=== PATIENT | male | born 1935 | race Caucasian/White ===

== ENCOUNTER 2018-10-18 17:05 | Inpatient (IN) | payer OTHER ==
--- NOTE | 2018-10-18 17:20 | PDOC ---
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 Pain is bilateral, non-qualifiable and radiates down his L arm. No associated palpitations, lightheadedness, shortness of breath. States he had similar pain when he had a cold previously however notes it was non-radiating. Patient also he was playing tennis earlier today when he felt dizzy for a few minutes, resumed playing after his symptoms resolved. Took 81 ASA @ home. Currently on Pradaxa. Follows with cardiology @ [facility]. Last stress test was 3 years previous and was normal. 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 Denies lower extremity edema/pain, recent travel. The patient denies abdominal pain, nausea/vomiting, diarrhea/constipation, dysuria/hematuria, fevers/chills. Allergy: Penicillin PMD: Dr. Magana <Shruthi Rivas - Last Filed: 10/18/18 18:54> <Fátima Catalan - Last Filed: 10/19/18 07:28> - General Chief Complaint: Chest Pain Stated Complaint: chest pain Time Seen by Provider: 10/18/18 17:14 Past History <Shruthi Rivas - Last Filed: 10/18/18 18:54> <Fátima Catalan - Last Filed: 10/19/18 07:28> - Past Medical History Allergies/Adverse Reactions: Allergies Allergy/AdvReac Type Severity Reaction Status Date / Time Penicillins Allergy Unknown Verified 10/18/18 17:50 Home Medications: Ambulatory Orders Dabigatran Etexilate Mesylate [Pradaxa -] 150 mg PO BID 10/18/18 Diclofenac Sodium 50 mg PO DAILY 10/18/18 Divalproex [Depakote -] 0 mg PO PRN PRN 10/18/18 Esomeprazole Magnesium [Nexium 24Hr] 40 mg PO DAILY 10/18/18 Ezetimibe 10 mg PO DAILY 10/18/18 Finasteride [Proscar] 5 mg PO HS 10/18/18 Folic Acid 3 mg PO HS 10/18/18 Tamsulosin HCl [Flomax] 0.4 mg PO BID 10/18/18 Valsartan [Diovan] 80 mg PO DAILY 10/18/18 Review of Systems - Review of Systems Constitutional: No: Chills, Fever HEENTM: No: Recent change in vision Respiratory: No: Shortness of Breath, Wheezing Cardiac (ROS): Yes: Chest Pain. No: Palpitations, Syncope ABD/GI: No: Constipated, Diarrhea, Nausea, Vomiting <Shruthi Rivas - Last Filed: 10/18/18 18:54> *Physical Exam - Physical Exam General Appearance: Yes: Nourished, Appropriately Dressed HEENT: positive: Normal Voice, Hearing Grossly Normal Neck: positive: Trachea midline, Supple Respiratory/Chest: positive: Lungs Clear, Normal Breath Sounds. negative: Wheezing Cardiovascular: positive: S1, S2. negative: Edema, JVD, Murmur Vascular Pulses: Dorsalis-Pedis (R): 2+, Doralis-Pedis (L): 2+ <Shruthi Rivas - Last Filed: 10/18/18 18:54> - Vital Signs Last Vital Signs Temp Pulse Resp BP Pulse Ox 97.7 F 55 L 16 107/64 96 10/18/18 17:12 10/18/18 18:10 10/18/18 18:10 10/18/18 18:10 10/18/18 18:10 <Fátima Catalan - Last Filed: 10/19/18 07:28> Heart Score/ECG Review - ECG Impressions Comment:: 10/18/18 18:35 NSR HR 61, RBB, TWI in leads III, aVF and precordials, no previous EKG in EMR <Shruthi Rivas - Last Filed: 10/18/18 18:54> ED Treatment Course - LABORATORY CBC & Chemistry Diagram: 10/18/18 17:35 10/18/18 17:35 <Shruthi Rivas - Last Filed: 10/18/18 18:54> - LABORATORY CBC & Chemistry Diagram: 10/18/18 17:35 10/19/18 05:30 - ADDITIONAL ORDERS Additional order review: Laboratory Results 10/18/18 10/18/18 10/18/18 17:35 17:35 17:35 PT with INR INR PTT (Actin FS) Sodium 134 L Potassium 4.0 Chloride 102 Carbon Dioxide 24 Anion Gap 8 BUN 16 Creatinine 1.3 Creat Clearance w eGFR 53.12 Random Glucose 109 H Calcium 8.9 Total Bilirubin 1.3 H AST 27 ALT 20 Alkaline Phosphatase 43 L Creatine Kinase 293 Troponin I 0.10 H Total Protein 6.6 Albumin 3.6 10/18/18 17:35 PT with INR 13.0 INR 1.16 PTT (Actin FS) 33.1 Sodium Potassium Chloride Carbon Dioxide Anion Gap BUN Creatinine Creat Clearance w eGFR Random Glucose Calcium Total Bilirubin AST ALT Alkaline Phosphatase Creatine Kinase Troponin I Total Protein Albumin 10/18/18 17:35 RBC 3.91 L MCV 89.9 MCHC 34.1 RDW 13.3 MPV 8.8 Neutrophils % 78.7 Lymphocytes % 13.2 Monocytes % 6.7 Eosinophils % 0.9 Basophils % 0.5 - Medications Given in the ED: ED Medications Discontinued Medications Generic Name Dose Route Start Last Admin Trade Name Freq PRN Reason Stop Dose Admin Aspirin 162 mg 10/18/18 17:35 10/18/18 17:50 Asa - PO 10/18/18 17:36 162 mg ONCE ONE Administration <Fátima Catalan - Last Filed: 10/19/18 07:28> Medical Decision Making - Medical Decision Making 10/18/18 17:27 82 year old male with chest pain. VS unremarkable. Frontal diagnosis: r/o ACS, NSTEMI, Arrythmia, Angina, Coronary Vasospasm, PUD, GERD, Gastritis, MSK, Costochondritis, Electrolyte derangement. Less likely Aortic dissection, PE given clinical presentation and story. Will obtain basic labs, Troponin, EKG, CXR. Reassess. 10/18/18 18:11 EKG shows HR 61, RBB, TWI in III, AVF, and precordial leads. No previous EKG in EMR 10/18/18 18:17 Case d/w Dr. Magana; agrees with telemetry admission. Will page nursing hotel or motel cleaning supervisor for transfer to telemetry bed @ [facility] Patient and patient's @ bedside counseled on plan of care, amenable to admission. 10/18/18 18:19 Troponin 0.10 - ? ischemic demand s/p ASA (81 mg @ home, 81 mg here) Heart Score 4 10/18/18 18:20 CXR shows no cardiomegaly, clear costophrenic angles, mild L sided atelectasis 10/18/18 18:[address] Corraels; awaiting callback, ? Heparin drip 10/18/18 18:33 Clinical Impression: NSTEMI 10/18/18 18:38 Case d/w Dr. Uribe (cardiology) - agrees w/Heparin drip and Troponin trend Patient reassessed @ bedside VSS Case signed out to Dr. Chen (Attending) for further management. <Shruthi Rivas - Last Filed: 10/18/18 18:54> - Medical Decision Making please see attending attestation - heart score is in high risk category, 6 for suspicion and comorbidities/age - not ischemic demand. This is NSTEMI, uptrending trops and will likely need cardiac cath. - full dose ASA given - heparin gtt initiated. - cards cs, admitted to [facility] under Dr Magana 10/19/18 07:27 <Fátima Catalan - Last Filed: 10/19/18 07:28> *DC/Admit/Observation/Transfer <Shruthi Rivas - Last Filed: 10/18/18 18:54> - Discharge Dispostion Decision to Admit order: Yes Decision to Admit order Date/Time: 10/18/18 18:28 <Fátima Catalan - Last Filed: 10/19/18 07:28> Diagnosis at time of Disposition: NSTEMI (non-ST elevated myocardial infarction) - Discharge Dispostion Condition at time of disposition: Guarded
[2018-10-18] MEDS ORDERED: ASPIRIN 81 MG CHEWABLE TABLETS PO ONE (17:35)
--- NOTE | 2018-10-18 17:35 | PDOC ---
Attending Attestation - Resident Resident Name: Shruthi Rivas - ED Attending Attestation I have performed the following: I have examined & evaluated the patient, The case was reviewed & discussed with the resident, I agree w/resident's findings & plan - HPI HPI: 10/18/18 17:32 82 YOM with DVT on Pradaxa 2/2 hypercoagulable state, BPH, HTN, HLD presenting with exertional chest pain, dizziness/lightheadededness. While playing tennis at 2pm today, he experienced dizziness, which Improved with rest. Then he Resumed playing x 1 hour before going home. while playing, he states he slumped down, unsure if he passed out or fell asleep x 1 minute, but no urinary incontinence or tongue biting or head trauma/falls. Went home, where he rested, ate lunch, then started having left chest pain, a/w radiation down left arm. he states he had been experiencing bilateral CP since the age of 22, but never with radiation down left arm/jaw, neuro changes or syncope or exertion. never had cardiac cath previously last stress test 3 years ago with primary mortgage counselor, which pt states was unremarkable. PMD: Dr Magana Complaint Evaluation Officer: Dr Aguirre, [facility]'s 10/19/18 07:28 10/19/18 07:28 10/19/18 07:30 - Physicial Exam PE: 10/18/18 17:31 NAD, PERRL, EOMI, MMM, nl conjunctiva, anicteric; neck supple. no JVD, lungs clear, RRR, no murmur, abdomen soft nontender. NIELSON x4, no focal neuro deficits. No peripheral edema. normal color for ethnicity, WWP. no calf tenderness, + trace BLE edema with RLE stocking in place. - Medical Decision Making 10/18/18 17:34 See HPI for details Vital signs reviewed, wnl. mildly hypertensive DDx chest pain: ACS, coronary vasospasm, NSTEMI, STEMI, arrhythmia, unstable angina, PE, dissection, PUD, esophageal spasm, GERD, gastritis, costochondritis , pneumonia, pleurisy, pericarditis/myocarditis. dehydration, electrolyte/ metabolic derangements. Prior notes reviewed, including admissions, discharges and consultations. laboratory results and imaging reviewed, basic labs and lytes wnl: CXR_no acute chest pathology Cardiac panel_+Troponin to 0.1, with abnormal EKG - radha with NSTEMI and concerns for ischemic process/ACS EKG normal sinus rhythm at 61 bpm, 1st degree AV block, wide QRS, +RBBB, ST and T wave segments and morphology normal. Nonspecific T wave abnormalities with TWI in precordials and inferior leads III, AVF, no prior EKG. 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 - Heart score 6 based on age and medical history/comorbidities and history moderate suspicious with syncope, cp and dizziness with exertional component/ typical symptoms, radiation and high risk for MACE at 4-6 weeks, - Heparin bolus and gtt - admit tele observation for serial EKG/trops, medical management, cardiac monitoring and stress testing/echo. cards cs with Dr Corrales health communications specialist - resident spoke with Dr Uribe admit to Dr Magana will arrange for [facility] Tele bed 10/19/18 07:29 Heart Score/ECG Review - History History: Moderately suspicious - Electrocardiogram EKG: Non specific repolarization disturbance - Age Age: >/= 65 - Risk Factors Risk Factors Heart Score: Yes Hx Hypercholesterolemia, Yes Hx Hypertension Based on the list above the patient has:: 1-2 risk factors - Troponin Troponin: 1-3x normal limit - Score Heart Score - Total: 6 #1 ECG reviewed & interpreted by me at: 17:15 General ECG Interpretation: Sinus Rhythm, Normal Rate Compared to previous ECG there are: Previous ECG unavail 10/18/18 17:36 EKG normal sinus rhythm at 61 bpm, prolonged FL interval c/w 1st deg AV block, wide QRS, +RBBB, ST and T wave segments and morphology normal. Nonspecific T wave abnormalities with TWI in precordials and inferior leads III, AVF, no prior EKG.
[2018-10-18 17:43] VITALS: BMI 25.8
[2018-10-18 17:58] LABS: BASO % 0.5 % (0-2.0); EOS % 0.9 % (0-4.5); HEMATOCRIT 35.1 % (35.4-49); LYMPH % 13.2 % (8-40); MCH 30.6 pg (25.7-33.7); MCHC 34.1 g/dl (32.0-35.9); MEAN CELL VOLUME 89.9 fl (80-96); MEAN PLT VOLUME 8.8 fl (7.5-11.1); MONO % 6.7 % (3.8-10.2); NEUT % 78.7 % (42.8-82.8); PLATELET COUNT 213 K/MM3 (134-434); RBC 3.91 M/mm3 (4.00-5.60); RDW 13.3 % (11.9-15.9); WHITE BLOOD COUNT 10.9 K/mm3 (4.0-10.8)
[2018-10-18 18:04] LABS: ACTIVATED PTT 33.1 SECONDS (25.2-36.5)
[2018-10-18 18:06] LABS: ALBUMIN 3.6 g/dl (3.4-5.0); ALK PHOS 43 U/L (45-117); ANION GAP 8 MMOL/L (8-16); BILIRUBIN,TOTAL 1.3 mg/dl (0.2-1); BLOOD UREA NITROGEN 16 mg/dl (7-18); CALCIUM 8.9 mg/dl (8.5-10); CHLORIDE 102 mmol/L (98-107); CO2 24 mmol/L (21-32); CREATININE 1.3 mg/dl (0.55-1.3); GLUCOSE,RANDOM 109 mg/dl (74-106); SGOT/AST 27 U/L (15-37); SGPT/ALT 20 U/L (13-61); SODIUM 134 mmol/L (136-145); TOT PROT 6.6 g/dl (6.4-8.2)
[2018-10-18 18:08] LABS: INR 1.16 (0.82-1.09)
[2018-10-18] MEDS ORDERED: HEPARIN NA (PORCINE) 5,000 UNITS/ML 1ML VIAL IVPUSH ONE ×2 (18:39→18:43)
[2018-10-18] MEDS ORDERED: HEPARIN INFUSION - 25,000 UNITS/500 ML INFUS.BAG IVPB ONE (18:44)
[2018-10-18] MEDS ORDERED: HEPARIN NA (PORCINE) 5,000 UNITS/ML 1ML VIAL ONE (18:45)
[2018-10-18] MEDS ORDERED: HEPARIN - 25,000 UNIT in SODIUM CHLORIDE 495 ML IV SCH (18:45)
--- NOTE | 2018-10-18 22:41 | HP ---
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 No associated palpitations, sweats, shortness of breath. This was prefaced by a near syncopal episode (became briefly "unaware") while playing a game of tennis about 1/2 hour before the chest pain came on. he states that while playing, he felt as he was going to faint and collapsed slowly to the ground and had a lapse; though he claims he did not lose consciousness. He was assisted to the bench, and quickly regained his composure; and resumed to play tennis for a brief period. 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 Cardiovascular: Yes: HTN, Hyperlipdemia Renal/: Yes: BPH Heme/Onc: Yes: Hypercoaguable State Musculoskeletal: Yes: Chronic low back pain, Osteoarthritis - Past Surgical History Additional Past Surgical History: achilles tendon repair prostate embolization - Smoking History Smoking history: Never smoked - Alcohol/Substance Use Hx Alcohol Use: No History of Substance Use: reports: None - Social History Usual Living Arrangement: Yes: With Spouse ADL: Independent 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 History of Recent Travel: Yes (went to [place] last month) Home Medications - Allergies Allergies/Adverse Reactions: Allergies Allergy/AdvReac Type Severity Reaction Status Date / Time Penicillins Allergy Unknown Verified 10/18/18 17:50 - Home Medications Home Medications: Ambulatory Orders Dabigatran Etexilate Mesylate [Pradaxa -] 150 mg PO BID 10/18/18 Diclofenac Sodium 50 mg PO DAILY 10/18/18 Divalproex [Depakote -] 0 mg PO PRN PRN 10/18/18 Esomeprazole Magnesium [Nexium 24Hr] 40 mg PO DAILY 10/18/18 Ezetimibe 10 mg PO DAILY 10/18/18 Finasteride [Proscar] 5 mg PO HS 10/18/18 Folic Acid 3 mg PO HS 10/18/18 Tamsulosin HCl [Flomax] 0.4 mg PO BID 10/18/18 Valsartan [Diovan] 80 mg PO DAILY 10/18/18 Family Disease History - Family Disease History Family History: Unremarkable Review of Systems - Review of Systems Constitutional: reports: No Symptoms Eyes: reports: No Symptoms HENT: reports: No Symptoms Neck: reports: No Symptoms Cardiovascular: reports: No Symptoms Respiratory: reports: No Symptoms Gastrointestinal: reports: No Symptoms Genitourinary: reports: Frequency Breasts: reports: No Symptoms Reported Musculoskeletal: reports: No Symptoms Integumentary: reports: No Symptoms Neurological: reports: No Symptoms Endocrine: reports: No Symptoms Hematology/Lymphatic: reports: No Symptoms Psychiatric: reports: No Symptoms Physical Examination Vital Signs: Vital Signs Temperature 97.7 F 10/18/18 17:12 Pulse Rate 52 L 10/18/18 19:24 Respiratory Rate 14 10/18/18 19:24 Blood Pressure 102/77 10/18/18 19:24 O2 Sat by Pulse Oximetry (%) 100 10/18/18 19:24 Constitutional: Yes: Well Nourished, No Distress, Calm Eyes: Yes: WNL HENT: Yes: WNL Neck: Yes: WNL Cardiovascular: Yes: Bradycardia Respiratory: Yes: Regular Gastrointestinal: Yes: Normal Bowel Sounds, Soft ...Rectal Exam: Yes: Deferred Musculoskeletal: Yes: WNL Extremities: Yes: WNL Edema: No Integumentary: Yes: WNL Neurological: Yes: WNL, Alert, Oriented ...Motor Strength: WNL Psychiatric: Yes: WNL Labs: CBC, BMP 10/18/18 17:35 10/18/18 17:35 Imaging - Results Chest X-ray: Report Reviewed EKG: Report Reviewed Problem List - Problems (1) NSTEMI (non-ST elevated myocardial infarction) Assessment/Plan: VS ACS; on IV heparin; (Stopped pradaxa); get serial EKGs and obt Cardiac consult Code(s): I21.4 - NON-ST ELEVATION (NSTEMI) MYOCARDIAL INFARCTION (2) Hypertension Assessment/Plan: has been controlled with CCB (amlodipine); ARB and Hctz; but now hypotensive; will hold these agents. 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; has been on a-c ; as he is s/p PE and DVT Code(s): D68.59 - OTHER PRIMARY THROMBOPHILIA (5) BPH associated with nocturia Assessment/Plan: resume proscar and Flomax Code(s): N40.1 - BENIGN PROSTATIC HYPERPLASIA WITH LOWER URINARY TRACT SYMP; R35.1 - NOCTURIA (6) Right bundle branch block (RBBB) Assessment/Plan: not new Code(s): I45.10 - UNSPECIFIED RIGHT BUNDLE-BRANCH BLOCK (7) Dyspepsia Assessment/Plan: chronic; rx H2 jessica Code(s): R10.13 - EPIGASTRIC PAIN (8) History of migraine Assessment/Plan: condition has been quiescent Code(s): Z86.69 - PERSONAL HISTORY OF DIS OF THE NERVOUS SYS AND SENSE ORGANS (9) Lumbago without sciatica Assessment/Plan: stable; uses Prn NSAIDs Code(s): M54.5 - LOW BACK PAIN Qualifiers: Chronicity: chronic Back pain laterality: bilateral Qualified Code(s): M54.5 - Low back pain; G89.29 - Other chronic pain Assessment/Plan The patient is an 82 year old male with rewsting CP and LUE radiation showing elevation of cardiac enzymes; who will likley need further investigations ~~~~~~~~~~~~~~~~~~~~~~ dr Magana
[2018-10-18] MEDS ORDERED: ROSUVASTATIN CA 5 MG TABLET (FP) PO SCH (23:45)
[2018-10-18] MEDS ORDERED: FINASTERIDE 5 MG TABLET (FP) PO SCH (23:45)
[2018-10-18] MEDS ORDERED: TAMSULOSIN HCL 0.4 MG CAP PO SCH (23:45)
[2018-10-19 07:24] LABS: ANION GAP 6 MMOL/L (8-16); BLOOD UREA NITROGEN 15 mg/dL (7-18); CALCIUM 8.6 mg/dL (8.5-10.1); CHLORIDE 109 mmol/L (98-107); CHOLESTEROL 115 mg/dL (50-200); CO2 28 mmol/L (21-32); CREATININE 1.1 mg/dL (0.55-1.3); GLUCOSE,RANDOM 79 mg/dL (74-106); HDL CHOLESTEROL 55 mg/dL (40-60); POTASSIUM 3.8 mmol/L (3.5-5.1); SODIUM 143 mmol/L (136-145); TRIGLYCERIDES 58 mg/dL (0-150)
[2018-10-19] MEDS ORDERED: ASPIRIN COATED 81 MG TABLET.EC PO SCH (10:00)
[2018-10-19] MEDS ORDERED: RANITIDINE HCL 150 MG TABLET (FP) PO SCH (10:00)
[2018-10-19] MEDS ORDERED: FOLIC ACID 1 MG TABLET (FP) PO SCH (10:00)
[2018-10-19] MEDS ORDERED: EZETIMIBE 10 MG TABLET (FP) PO SCH (10:00)
--- NOTE | 2018-10-19 10:14 | PN ---
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 Started about 30 min after exercise, radiated down LUE. Prior to chest pain starting he had an episode where he felt dizzy, unaware while playing tennis, felt faint and fell slowly to the ground. denies LOC. No palps , dyspnea, orthopnea. Trop 0.1->2.1->8.6, on heparin gtt, tx for ACS.
--- NOTE | 2018-10-19 10:46 | EKG ---
Test Reason : Blood Pressure : / mmHG Vent. Rate : 061 BPM Atrial Rate : 061 BPM P-R Int : 234 ms QRS Dur : 134 ms QT Int : 452 ms P-R-T Axes : 061 029 025 degrees QTc Int : 455 ms SINUS RHYTHM WITH 1ST DEGREE A-V BLOCK RIGHT BUNDLE BRANCH BLOCK ABNORMAL ECG NO PREVIOUS ECGS AVAILABLE Confirmed by JUNAID MOODY MD ([id number]) on 10/19/2018 10:46:26 AM Referred By: DR RAGSDALE Confirmed By:JUNAID MOODY MD
--- NOTE | 2018-10-19 11:05 | EKG ---
Test Reason : Blood Pressure : / mmHG Vent. Rate : 052 BPM Atrial Rate : 052 BPM P-R Int : 226 ms QRS Dur : 144 ms QT Int : 440 ms P-R-T Axes : 087 003 -03 degrees QTc Int : 409 ms SINUS BRADYCARDIA WITH 1ST DEGREE A-V BLOCK RIGHT BUNDLE BRANCH BLOCK CANNOT RULE OUT INFERIOR INFARCT , AGE UNDETERMINED ABNORMAL ECG WHEN COMPARED WITH ECG OF 18-OCT-2018 17:13, NO SIGNIFICANT CHANGE WAS FOUND Confirmed by FRANSISCO RUBIO, JUNAID ([id number]) on 10/19/2018 11:05:25 AM Referred By: TAMANNA REED,[facility] Confirmed By:JUNAID MOODY MD
[2018-10-19 14:10] VITALS: BP 106/58; PULSE 55; TEMP 97.8
--- NOTE | 2018-10-19 14:29 | CON.CARD ---
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 Patient was playing tennis when felt lightheaded. Sat down and unclear if LOC but after a minute or so was up and feeling better and resumed playing tennis for 30 minutes. Went home and while home felt mild central chest pressure which than worsened which radiated down his left arm. NO sob or diaphoresis. 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 History of Recent Travel: Yes (went to [place] last month) Home Medications - Allergies Allergies/Adverse Reactions: Allergies Allergy/AdvReac Type Severity Reaction Status Date / Time Penicillins Allergy UNKNOWN Verified 12/26/15 13:42 - Home Medications Home Medications: Ambulatory Orders Warfarin Na [Coumadin -] 10 mg PO DAILY 04/24/12 Ascorbate Calcium [Vitamin C] 500 mg PO BID 12/26/15 Atorvastatin Ca [Lipitor] 10 mg PO DAILY 12/26/15 Cholecalciferol (Vitamin D3) [Vitamin D3 -] 1,000 unit PO BID 12/26/15 Finasteride [Proscar] 5 mg PO HS 12/26/15 Omeprazole [Prilosec] 40 mg PO DAILY 12/26/15 Tamsulosin HCl [Flomax -] 0.4 mg PO BID 12/26/15 Valsartan [Diovan] 80 mg PO DAILY 12/26/15 Diclofenac Sodium 50 mg PO DAILY 12/31/15 Oxycodone HCl/Acetaminophen [Percocet 5-325 mg Tablet -] 1 - 2 tab PO Q6H #60 tab MDD 8 12/31/15 Dabigatran Etexilate Mesylate [Pradaxa -] 150 mg PO BID 10/18/18 Diclofenac Sodium 50 mg PO DAILY 10/18/18 Divalproex [Depakote -] 0 mg PO PRN PRN 10/18/18 Esomeprazole Magnesium [Nexium 24Hr] 40 mg PO DAILY 10/18/18 Ezetimibe 10 mg PO DAILY 10/18/18 Finasteride [Proscar] 5 mg PO HS 10/18/18 Folic Acid 3 mg PO HS 10/18/18 Tamsulosin HCl [Flomax] 0.4 mg PO BID 10/18/18 Valsartan [Diovan] 80 mg PO DAILY 10/18/18 Vital Signs: Vital Signs Temperature 97.8 F 10/19/18 14:00 Pulse Rate 55 L 10/19/18 14:00 Respiratory Rate 20 10/19/18 14:00 Blood Pressure 106/58 L 10/19/18 14:00 O2 Sat by Pulse Oximetry (%) 100 10/18/18 22:23 Constitutional: Yes: No Distress Respiratory: Yes: CTA Bilaterally Gastrointestinal: Yes: Soft Cardiovascular: Yes: Regular Rate and Rhythm JVD: No Carotid Bruit: No PMI: Non-Displaced Heart Sounds: Yes: S1, S2 Murmur: No: Systolic Murmur Edema: No - Other Data Labs, Other Data: CBC, BMP 10/18/18 17:35 10/19/18 05:30 INR, PTT INR 1.16 (0.82-1.09) 10/18/18 17:35 Troponin, BNP 10/18/18 10/18/18 10/19/18 17:35 17:35 00:00 Troponin I 0.10 H 2.12 H* B-Natriuretic Peptide 127.9 10/19/18 05:30 Troponin I 8.60 H* B-Natriuretic Peptide Troponin, BNP 10/18/18 10/18/18 10/19/18 17:35 17:35 00:00 Troponin I 0.10 H 2.12 H* B-Natriuretic Peptide 127.9 10/19/18 05:30 Troponin I 8.60 H* B-Natriuretic Peptide Imaging - Results Chest X-ray: Report Reviewed EKG: Image Reviewed Problem List - Problems (1) NSTEMI (non-ST elevated myocardial infarction) Code(s): I21.4 - NON-ST ELEVATION (NSTEMI) MYOCARDIAL INFARCTION Assessment/Plan 82 year old male with a pmhx of htn, hld, tobacco use, and remote DVT/PE on permanent AC with apixaban for 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 CXR no chf CK peak 643 and Trop 8 EKG: sinus rhythm at 62bpm, RBBB, nonspecific T wave changes 1) NSTEMI -Patient s/p nstemi -Aspirin -On heparin drip goal PTT 50-70 -Continue statin -Hold off on beta blockers as HR in 40s and BP on the lower side. Currently asymptomatic Plan to transfer to [facility] cardiac service and plan for cardiac cath in the AM. NPO after midnight.
--- NOTE | 2018-10-19 14:49 | DS ---
Physical Examination Vital Signs: Vital Signs Temperature 97.8 F 10/19/18 14:00 Pulse Rate 55 L 10/19/18 14:00 Respiratory Rate 20 10/19/18 14:00 Blood Pressure 106/58 L 10/19/18 14:00 O2 Sat by Pulse Oximetry (%) 100 10/18/18 22:23 Constitutional: Yes: Well Nourished, No Distress, Calm Eyes: Yes: Conjunctiva Clear, EOM Intact Cardiovascular: Yes: Bradycardia Respiratory: Yes: Regular Gastrointestinal: Yes: Normal Bowel Sounds, Soft Extremities: Yes: WNL Edema: No Integumentary: Yes: WNL Neurological: Yes: WNL, Alert ...Motor Strength: WNL Labs: CBC, BMP 10/18/18 17:35 10/19/18 05:30 CBCD WBC 10.9 K/mm3 (4.0-10.8) H 10/18/18 17:35 RBC 3.91 M/mm3 (4.00-5.60) L 10/18/18 17:35 Hgb 12.0 GM/dl (11.7-16.9) 10/18/18 17:35 Hct 35.1 % (35.4-49) L 10/18/18 17:35 MCV 89.9 fl (80-96) 10/18/18 17:35 MCHC 34.1 g/dl (32.0-35.9) 10/18/18 17:35 RDW 13.3 % (11.9-15.9) 10/18/18 17:35 Plt Count 213 K/MM3 (134-434) 10/18/18 17:35 MPV 8.8 fl (7.5-11.1) 10/18/18 17:35 CMP Sodium 143 mmol/L (136-145) 10/19/18 05:30 Potassium 3.8 mmol/L (3.5-5.1) 10/19/18 05:30 Chloride 109 mmol/L (98-107) H 10/19/18 05:30 Carbon Dioxide 28 mmol/L (21-32) 10/19/18 05:30 Anion Gap 6 MMOL/L (8-16) L 10/19/18 05:30 BUN 15 mg/dL (7-18) 10/19/18 05:30 Creatinine 1.1 mg/dL (0.55-1.3) 10/19/18 05:30 Creat Clearance w eGFR 64.41 (>60) 10/19/18 05:30 Random Glucose 79 mg/dL (74-106) 10/19/18 05:30 Calcium 8.6 mg/dL (8.5-10.1) 10/19/18 05:30 Total Bilirubin 1.3 mg/dl (0.2-1) H 10/18/18 17:35 AST 27 U/L (15-37) 10/18/18 17:35 ALT 20 U/L (13-61) 10/18/18 17:35 Alkaline Phosphatase 43 U/L (45-117) L 10/18/18 17:35 Total Protein 6.6 g/dl (6.4-8.2) 10/18/18 17:35 Albumin 3.6 g/dl (3.4-5.0) 10/18/18 17:35 CARDIAC ENZYMES Creatine Kinase 643 U/L (26-308) H 10/19/18 05:30 Troponin I 8.60 ng/ml (0.00-0.05) H* 10/19/18 05:30 Discharge Summary Reason For Visit: CHEST PAIN Current Active Problems BPH associated with nocturia (Acute) Dyspepsia (Acute) History of migraine (Acute) Hypercoagulopathy (Acute) Hypertension (Acute) Lipidemia (Acute) Lumbago without sciatica (Acute) NSTEMI (non-ST elevated myocardial infarction) (Acute) Right bundle branch block (RBBB) (Acute) Hospital Course: arrived to [place] ER c/o chest pain and was found to be a bit hypotensive and bradycardic; he was started on IV hep and the CP subsided; his 1st Troponin was high and all 3 subsequent troponins were higher in succession. The EKG showed Rbbb (likely old), and bradycardia but without hyperacute ST changes. He experienced no futher c/o of CP; sweats, SOB, etc while hospitalized and was in no distress. He was seen by Cardiology who felt he had an NSTEMI and made the decision to transfer to [facility] for further intervention Condition: Guarded - Instructions Diet, Activity, Other Instructions: low salt diet Must continue oral a/c on discharge 2nd Hypercoaguable state Disposition: TRANSFER ACUTE CARE/OTHER HOSP - Home Medications Comprehensive Discharge Medication List: Ambulatory Orders Dabigatran Etexilate Mesylate [Pradaxa -] 150 mg PO BID (ON HOLD) zantac 150mg BID Ezetimibe 10 mg PO DAILY 10/18/18 Finasteride [Proscar] 5 mg PO HS 10/18/18 Folic Acid 3 mg PO HS 10/18/18 Tamsulosin HCl [Flomax] 0.4 mg PO BID 10/18/18 Heparin IV infusion Crestor 5mg QHS ASA 81mg Qd
--- NOTE | 2018-10-19 16:30 | ECHO ---
Version: 1 Name: FANTASMA BOSS Exam: Adult Echocardiogram Study Date: 10/19/2018, 2:56 PM Age: 82 Years MMode/2D Measurements & Calculations IVSd: 0.92 cm LVIDs: 3.4 cm LVIDd: 4.5 cm LVPWd: 0.90 cm LVOT diam: 2.10 cm Ao root diam: 3.6 cm LA dimension: 4.7 cm Doppler Measurements & Calculations MV E max kai: 62.2 cm/sec Med E/e': 8.7 MV A max kai: 57.3 cm/sec Med Peak E' Kai: 7.1 cm/sec MV E/A: 1.09 Lat E/e': 5.7 Lat Peak E' Kai: 11.0 cm/sec MR max P.8 mmHg Ao max P.0 mmHg KRISTIN(I,D): 1.91 cm Ao mean P.7 mmHg LV V1 mean: 50.4 cm/sec Ao V2 max: 81.7 cm/sec LV V1 mean P.15 mmHg TR max kai: 197.9 cm/sec TR max P.7 mmHg Procedure A two-dimensional transthoracic echocardiogram with color flow and Doppler was performed. Left Ventricle The left ventricular size, thickness and function are normal. The left ventricular ejection fraction is normal. E/A reversal consistent with but not diagnostic of poor LV compliance. The left ventricular wall motion is normal. Right Ventricle The right ventricle is normal in size and function. Atria The left atrium is moderately dilated. The right atrium is moderately dilated. Mitral Valve There is mild to moderate mitral valve thickening. There is no mitral valve stenosis. There is mild to moderate mitral regurgitation. Tricuspid Valve There is mild tricuspid valve thickening. There is no tricuspid stenosis. There is mild to moderate tricuspid regurgitation. Right ventricular systolic pressure is normal. Aortic Valve The aortic valve is normal in structure and function. No hemodynamically significant valvular aortic stenosis. No aortic regurgitation is present. Pulmonic Valve The pulmonic valve is not well visualized. Great Vessels The aortic root is normal size. Summary Statements The left atrium is moderately dilated. The right atrium is moderately dilated. The left ventricular size, thickness and function are normal The left ventricular ejection fraction is normal. The left ventricular wall motion is normal. There is mild to moderate mitral valve thickening. There is mild to moderate tricuspid regurgitation. Right ventricular systolic pressure is normal. E/A reversal consistent with but not diagnostic of poor LV compliance MD Liu Mittal 10/19/2018, 3:29 PM Ordering Physician: Tano Frias Referring Physician: TAMANNA HOANG Performed By: Jenn Giles
== END 2018-10-19 18:30 | disposition short-term general hospital (02) | DRG 281 ==
LOC: SUPCPDRO 17:05 → FER 17:05 → J4W 22:23 → MERGE 22:23
PROVIDERS: ADMIT Internal Medicine; ATTEND Internal Medicine
DX: I21.4 Non-ST elevation (NSTEMI) myocardial infarction (principal); D68.59 Other primary thrombophilia; I10 Essential (primary) hypertension; E78.5 Hyperlipidemia, unspecified; N40.0 Benign prostatic hyperplasia without lower urinary tract symptoms; I44.0 Atrioventricular block, first degree; I45.10 Unspecified right bundle-branch block; M54.5 Low back pain; R10.13 Epigastric pain; G89.29 Other chronic pain; Z86.69 Personal history of other diseases of the nervous system and sense organs; F17.210 Nicotine dependence, cigarettes, uncomplicated; Z88.0 Allergy status to penicillin; M19.90 Unspecified osteoarthritis, unspecified site; R00.1 Bradycardia, unspecified; Z86.718 Personal history of other venous thrombosis and embolism
CPT/HCPCS: 36415; 71045-TC-FY; 80048; 80053; 80061; 82550; 82553; 83721; 83880; 84443; 84484; 85025; 85610; 85730; 86850; 86900; 86901; 93005; 93010; 93306-TC; 99285-25; J1644

== ENCOUNTER 2020-11-26 04:24 | Day surgery (SDC) | payer OTHER ==
[2020-11-25 12:39] VITALS: BMI 25.2
[2020-11-26 09:17] LABS: INR 0.93 (0.83-1.09); PROTHROMBIN TIME (PATIENT) 11.5 SEC (9.7-13.0)
[2020-11-26 09:19] LABS: ACTIVATED PTT 34.3 SECONDS (25.2-36.5)
[2020-11-26] MEDS ORDERED: ELECTROLYTE-148 SOLN 1,000 ML IV SCH (10:45)
[2020-11-26] MEDS ORDERED: ceFAZolin SODIUM 1 GM VIAL IVPB ONE ×2 (11:00→11:10)
[2020-11-26] MEDS ORDERED: MIDAZOLAM HCL 2 MG/2 ML SINGLE DOSE VIAL ONE (11:03)
[2020-11-26] MEDS ORDERED: PROPOFOL 20 ML ONE (11:03)
[2020-11-26] MEDS ORDERED: EPHEDRINE SULFATE/0.9% NACL/PF 50 MG/10 ML SYRINGE NR ONE (11:10)
[2020-11-26] MEDS ORDERED: ONDANSETRON 4 MG/2 ML VIAL IVPUSH PRN (11:45)
[2020-11-26] MEDS ORDERED: LACTATED RINGERS SOLUTION 1,000 ML IV SCH (11:45)
[2020-11-26] MEDS ORDERED: PROMETHAZINE HCL 25 MG/1 ML VIAL IVPUSH PRN (11:45)
[2020-11-26] MEDS ORDERED: IBUPROFEN 800 MG/8 ML IJ IVPB ONE ×2 (12:42→12:59)
[2020-11-26] MEDS ORDERED: ACETAMINOPHEN INJECTION 100 ML IVPB ONE (12:43)
[2020-11-26] MEDS ORDERED: ACETAMINOPHEN 1000 MG/100 ML VIAL (NON FORMULARY) IVPB ONE (12:46)
[2020-11-26 16:06] VITALS: BP 122/71; PULSE 50; TEMP 97.8
== END 2020-11-26 15:30 | disposition home or self-care (01) ==
LOC: JASU-SURG 04:24 → MERGE 09:45 → JASU-SURG 15:30
PROVIDERS: ATTEND Urology
PROC: 0T7D8DZ Dilation of Urethra with Intraluminal Device, Via Natural or Artificial Opening Endoscopic (ICD-10-PCS; principal; 2020-11-26 10:45)
DX: N40.1 Benign prostatic hyperplasia with lower urinary tract symptoms (principal); R33.8 Other retention of urine
CPT/HCPCS: C9740; L8699; 36415; 85610; 85730; 94760; J0131

== ENCOUNTER 2020-12-12 05:16 | Day surgery (SDC) | payer OTHER ==
[2020-12-10 14:47] VITALS: BMI 25.5
[2020-12-12 11:57] VITALS: TEMP 96.4
[2020-12-12 12:31] VITALS: BP 140/62
[2020-12-12 13:14] VITALS: PULSE 50
== END 2020-12-12 13:05 | disposition home or self-care (01) ==
LOC: JASU-ENDO 05:16
PROVIDERS: ATTEND Internal Medicine Gastroenterology
PROC: 0DBM8ZX Excision of Descending Colon, Via Natural or Artificial Opening Endoscopic, Diagnostic (ICD-10-PCS; principal; 2020-12-12 11:17)
DX: Z12.11 Encounter for screening for malignant neoplasm of colon (principal); D12.4 Benign neoplasm of descending colon; Z86.010 Personal history of colon polyps; Z80.0 Family history of malignant neoplasm of digestive organs
CPT/HCPCS: 88305-TC

== ENCOUNTER 2023-01-18 15:04 | Emergency (ER) | payer OTHER ==
[2023-01-18 15:33] VITALS: BP 168/92; PULSE 67; RESP 18; TEMP 98.4; BMI 24.3
== END 2023-01-18 15:54 | disposition home or self-care (01) ==
LOC: FER 15:04 → MERGE 15:04 → FER 15:54
DX: S60.861A Insect bite (nonvenomous) of right wrist, initial encounter (principal); W57.XXXA Bitten or stung by nonvenomous insect and other nonvenomous arthropods, initial encounter
CPT/HCPCS: 99283-25

== ENCOUNTER 2024-02-10 05:19 | Day surgery (SDC) | payer OTHER ==
[2024-02-09 07:35] VITALS: BMI 28.4
[2024-02-10 12:09] VITALS: TEMP 98.2
[2024-02-10 12:34] VITALS: PULSE 44; RESP 20
[2024-02-10 12:40] VITALS: BP 138/76
== END 2024-02-10 13:05 | disposition home or self-care (01) ==
LOC: JASU-ENDO 05:19
PROVIDERS: ATTEND Internal Medicine Gastroenterology
PROC: 0DBL8ZX Excision of Transverse Colon, Via Natural or Artificial Opening Endoscopic, Diagnostic (ICD-10-PCS; 2024-02-10)
PROC: 0DBM8ZX Excision of Descending Colon, Via Natural or Artificial Opening Endoscopic, Diagnostic (ICD-10-PCS; principal; 2024-02-10 10:30)
DX: Z12.11 Encounter for screening for malignant neoplasm of colon (principal); D12.4 Benign neoplasm of descending colon; D12.3 Benign neoplasm of transverse colon; Z86.010 Personal history of colon polyps
CPT/HCPCS: 88305-TC